=== PATIENT | female | born 1995 | race Caucasian/White ===

== ENCOUNTER → 2021-04-05 06:43 | Outpatient (CLI) | payer SELFPAY ==
[2021-04-05 17:52] LABS: SARS-CoV-2 RNA PCR Negative
== END ==
PROVIDERS: PCP Family Medicine; Visit Provider Nurse Practitioner Family
DX: R68.89 Other general symptoms and signs (principal); Z20.822 Contact with and (suspected) exposure to COVID-19
CPT/HCPCS: C9803; U0003; U0005

== ENCOUNTER 2022-03-07 12:27 | Outpatient (CLI) | payer OTHER, SELFPAY ==
--- NOTE | ~2022-03-07 | CT_ITS ---
EXAMINATION: CT brain wo con DATE: 03/07/2022 12:49 INDICATION: Right headache. Dizziness. Tinnitus. Blurred vision. Loss of balance. TECHNIQUE: Computed tomography (CT) of the head was performed without intravenous contrast. Sagittal and coronal reconstructions were performed. The mA was adjusted according to patient size. Iterative reconstruction technique was employed. The dose-length product was 605.33 mGy-cm. COMPARISON: None FINDINGS: No acute intracranial hemorrhage, acute infarction or abnormal extra axial fluid collection. Ventricl es are normal and symmetric. No mass/mass effect. Multiple small calcified subcutaneous scalp nodules likely representing trichilemmal cysts. The orbits, paranasal sinuses and mastoid air cells are norm al. IMPRESSION: 1. Normal brain. Reviewed, dictated and finalized at location B. IMPRESSION: 1. Normal brain.
== END 2022-03-07 12:28 | disposition home or self-care (01) ==
PROVIDERS: PCP Nurse Practitioner; Visit Provider Nurse Practitioner
DX: R42 Dizziness and giddiness (principal)
CPT/HCPCS: 70450

== ENCOUNTER 2022-03-24 12:47 | Outpatient (CLI) | payer OTHER, SELFPAY ==
[2022-03-24 13:22] LABS: Alanine Aminotransferase 13 U/L (6-35); Alkaline Phosphatase 70 U/L (38-126); Amylase 55 U/L (30-110); Aspartate Amino Transferase 14 U/L (14-36); Bilirubin,Total 0.4 mg/dL (0.2-1.3); Lipase 37 U/L (23-300)
== END 2022-03-24 12:48 | disposition home or self-care (01) ==
LOC: ANHSURGERY 12:52
PROVIDERS: PCP Nurse Practitioner; Visit Provider Surgery
DX: Z01.818 Encounter for other preprocedural examination (principal); K80.10 Calculus of gallbladder with chronic cholecystitis without obstruction
CPT/HCPCS: 36415; 80076; 82150; 83690; 86850; 86900; 86901

== ENCOUNTER 2022-03-27 00:21 | Day surgery (SDC) | payer OTHER, SELFPAY ==
[2022-03-23 14:36] VITALS: BMI 35.9
--- NOTE | 2022-03-23 14:51 | PC.NURSE ---
Report to the Outpatient Waiting Room, entrance under the green pavilion located off [facility], at time 7:30 on date 03/27/22. OR Time: 9:30. - You and your visitor will be asked a series of questions to screen for COVID 19 for your protection. - Only one visitor is allowed at this time. - The patient visitor is requested to leave or wait in car when not with patient. - A mask is required within the hospital. Patients may have clear liquids (water, carbonated beverages, clear teas, apple juice) until 3 hours prior to surgery (6:30) with a maximum of 20 ounces. - No food from midnight until time of surgery Take the following medications with a SIP of water the morning of surgery: CITALOPRAM, INHALER AND PAIN PILL IF NEEDED Medications to discontinue per physician: N/A Date to take last dose: N/A Please no make-up, nail czech, hairspray, perfume, deodorant, or body powder the day of surgery. No jewelry (including any body piercings) or valuables the day of surgery, leave them at home. Please take a shower or bath the night before, or the morning of, surgery with an antibacterial soap. Wear comfortable, loose fitting clothing. HIBICLENS SHOWER - Jewelry must be removed prior to entering the operating room. Rings and piercings that are not removed may be cut off. - The hospital will not accept responsibility for valuables. - Please leave all valuables, including medications, at home the day of surgery. If you are going home after surgery, a licensed ambulance driver paramedic must drive you home. - NO public transportation without another adult. - We recommend that an adult stay with you for 24 hours following discharge. - We also recommend that you do not drive, make important decision, drink alcoholic beverages, or take any drugs that were not prescribed by your health care provider for at least 24 hours after your discharge time. Follow any additional instructions given to you from your surgeon. If you or anyone in your household have experienced Covid symptoms in the past week, please notify your surgeon or the nurse liaison at the phone number below for possible testing. Telephone instructions given to PT - RYAN MINA and asked if any additional questions and then verbalized understanding. Patient advised to call surgeon office or pre surgery nurse liaison [phone] if any additional questions.
[2022-03-27] VITALS (10 sets, daily range): BP systolic 120–146; BP diastolic 69–98; PULSE 54–89; RESP 16–24; TEMP 36.5; O2SAT 91–99
[2022-03-27] MEDS: ACETAMINOPHEN 500 MG TABLET 1000 MG PO (08:10)
[2022-03-27] MEDS: LACTATED RINGERS 1,000 ML 30 ML IV CONT ×2 (08:25→10:07)
[2022-03-27] MEDS: KETOROLAC 15 MG/ML VIAL (*BKC) IV PUSH (08:25)
--- NOTE | 2022-03-27 08:31 | WPDANESEPPF ---
Anes - Initial Pre Proc Eval Procedure: Operation Date: 03/27/22 09:30 Proposed Procedures p Laparoscopic Cholecystectomy - Mirela Turcios MD Date/Time: 03/27/22 08:31 Surgeon: Mirela Turcios MD Pre Op Diagnosis: cholecystitis with stones Patient Data Age: 26 Gender: F Height: 1.63 m Weight: 91.9 kg Last Vital Signs Temp 36.5 C 03/27/22 07:53 Pulse 89 03/27/22 07:53 Resp 16 03/27/22 07:53 BP 146/98 H 03/27/22 07:53 Pulse Ox 99 03/27/22 07:53 O2 Del Method Room Air 03/27/22 07:53 Allergies Allergy/AdvReac Type Severity Reaction Status Date / Time adhesive Allergy Severe Rash Verified 03/27/22 08:05 cinnamon Allergy Severe Becomes Verified 03/27/22 08:05 incoherent codeine Allergy Intermediate Abdominal Verified 03/27/22 08:05 pain human papillomavirus Allergy Intermediate Other Verified 03/27/22 08:05 vaccine, quadr COVID-19 (SARS-CoV-2) AdvReac Severe Pneumonia Verified 03/27/22 08:05 vaccine, kassy tramadol AdvReac Severe GI UPSET Verified 03/27/22 08:05 Home Medications Medication Instructions Recorded Confirmed Type citalopram 20 mg tablet 20 mg PO DAILY #90 tabs 10/21/21 03/27/22 Rx epinephrine 0.3 mg/0.3 mL 0.3 mg (0.3 mL) IM ONCE #2 ea 12/15/21 03/27/22 Rx injection, auto-injector albuterol sulfate 90 mcg/actuation 1 inh inhalation Q4H PRN shortness 12/23/21 03/27/22 Rx aerosol inhaler of breath or wheezing #6.7 grams clonazepam 0.5 mg tablet 0.5 mg PO BID PRN anxiety #60 tabs 01/16/22 03/27/22 Rx sumatriptan succinate 50 mg tablet See Rx Instructions PO .COMPLEX #7 01/30/22 03/27/22 Rx tabs nicotine 14 mg/24 hr daily 1 patch transdermal DAILY #28 ea 03/10/22 03/27/22 Rx transdermal patch ondansetron 4 mg disintegrating 4 mg PO Q8H PRN Nausea 03/10/22 03/27/22 History tablet hydrocodone 5 mg-acetaminophen 325 1 tablet PO Q4-6H PRN pain #60 tabs 03/15/22 03/27/22 Rx mg tablet dicyclomine 10 mg capsule 10 mg PO BID 03/23/22 03/27/22 History Patient hx anesthesia problems: none Family hx anesthesia problems: none Results Review: All pre-operative results and documents have been reviewed as part of the pre-operative evaluation. [facility] Past Medical History Medical History (Updated 03/15/22 @ 09:19 by Shelia Hayward CMA) Anxiety Chronic daily headache History of COVID-19 Insomnia Postural hypotension Surgical History Surgical History H/O adenoidectomy History of ankle surgery (~2004) Left History of tonsillectomy Family History Family History Mother Family history of thyroid disease Sibling Family history of thyroid disease Grandparent Hypertension Acute myocardial infarction Other Bladder cancer Social History Social History Smoking packs per day: 0.5 Smoking cigarettes per day: 10.0 Years smoked: 6 Smoking pack-years: 3.00 Smoking status: Current some day smoker Tobacco type: cigarettes Additional smoking assessment comments: USING NICOTINE PATCH Alcohol intake: current Alcohol use details: VERY RARE Substance use: never Substance use type: does not use Living arrangements: with family Spiritual care concerns: No Anes - Eval Final PreProcedure Day of Procedure 03/27/22 08:31 Patient weight: obese Heart: regular rate and rhythm Lungs: clear to auscultation Airway: Mallampati scale class II Neurological: alert and oriented Last oral intake: >/= 8 hours ASA classification: II Emergent: no Anesthetic plan: proceed Anesthesia type and monitoring: general ETT and standard monitoring Results Review: All pre-operative results and documents have been reviewed as part of the pre-operative evaluation. Informed Consent: The patient's anesthetic plan and its attendant risks and benefits were discussed wit
--- NOTE | 2022-03-27 09:01 | WPDHPUPDATE1 ---
History and Physical Update Update Date/Time: 03/27/22 09:01 History and Physical has been reviewed, including an updated exam of the patient. There are NO changes in the patient's condition. Risks, benefits, and alternatives have been discussed and questions answered. Patient agrees to proceed with procedure.
[2022-03-27] MEDS: ceFAZolin 2 GM/D5W 50 ML 2 GM/50 ML BAG IVPB (09:10)
--- NOTE | 2022-03-27 10:09 | W.PM.PROC2 ---
Procedure Note - Detailed Date of Procedure 03/27/22 Pre-op Diagnosis cholecystitis with stones Post-op Diagnosis Same Procedure Performed Laparoscopic cholecystectomy Surgeon Mirela Turcios MD Anesthesia General Indications 26-year-old female presented to the office complaining of postprandial right upper quadrant abdominal pain associated with nausea and vomiting. Workup including imaging significant for cholecystitis, cholelithiasis. Findings Cholecystitis with cholelithiasis Description of Procedure The patient was taken to the operating room placed in the supine position. After adequate induction of general anesthesia, the patient was prepped and draped in normal sterile fashion. A time-out was then performed to verify the patient's identity as well as the procedure being performed. I then made a 5 mm incision in the infraumbilical region. Through this, a Veress needle was placed into the peritoneal cavity and CO2 gas was then insufflated. After adequate pneumoperitoneum was achieved, the Veress needle was removed and a 5 mm optiview trocar was placed through this incision under direct visualization. I then placed the laparoscope through this trocar site and under direct visualization placed a further 12 mm subxiphoid port as well as 2 additional 5 mm ports in the right upper abdomen. The gallbladder was then identified and was noted to be moderately inflamed, distended, and full of gallstones. It was also covered with omentum and intraperitoneal fat. I took down these adhesions using the bovie cautery. Once this was done, I was able to place a grasper at the dome of the gallbladder and this was retracted anterior and cephalad up over the liver. A 2nd retractor was then placed at the infundibulum and retracted laterally, this allowed visualization of the triangle of Calot. I then was able to visualize the cystic duct in its entirety from its proximal insertion into the gallbladder, to its distal junction with the common hepatic/common bile duct junction. At this point, I carefully skeletonized the proximal cystic duct with the [place] dissector. I then clipped and transected the proximal cystic duct. Next I visualized the cystic artery. Again the artery was skeletonized, clipped, and transected. I then used the Bovie cautery to take down the peritoneal attachments of the gallbladder off the liver bed. This was somewhat difficult given the amount of inflammation in the posterior space. Once the gallbladder specimen was completely detached, an endo-pouch was placed through the 12 mm port site. I then placed the gallbladder specimen into the Endo pouch and removed the endo-pouch from the 12 mm port site. The specimen will now be sent to pathology for further review. I then copiously irrigated the right upper quadrant. Some mild oozing was noted in the liver bed and this was controlled with the bovie cautery. I then placed some hemostatic powder in the liver bed. Hemostasis was noted in the liver bed, the clips were noted to be in good position on both the cystic duct stump and the cystic artery stump. No other pathology was noted in the right upper quadrant. I then moved the laparoscope to the subxiphoid port. No iatrogenic injury or other pathology was noted in the lower abdomen. I then closed the 12 mm trocar site under direct visualization using the Gunnar cone and 0 Vicryl suture. At this point, the abdomen was desufflated and all ports removed. All port sites were then closed with 4.O Monocryl subcuticular sutures. Dermabond was placed on each incision. The patient tolerated the procedure well, was extubated in the operating room postoperative and will be transferred to the recovery room in stable condition Estimated Blood Loss 20 Drains No Packing No Pathology Yes Complications No immediate complications Condition Stable Disposition PACU [facility] Billing Surgery - Charge Forward: Surgery Billing
[2022-03-27] MEDS: fentaNYL CITRATE INJ (*CRX) 100 MCG/2 ML VIAL 25 MCG IV PUSH ×4 (10:38→10:57)
--- NOTE | 2022-03-27 11:42 | SUR.PHASEII ---
1142- Call to Dr. Miller patient requesting pain pill prior to discharge home. Per patient she has allergies to pain medicine but has previously taken PO Beaumont without issues. Per Dr. Miller place orders for PO Beaumont 5/325MG once and administer.
[2022-03-27] MEDS: HYDROcodone/acetaminophen (*CRX) 5-325 MG TABLET 1 TAB PO (11:49)
== END 2022-03-27 12:15 | disposition home or self-care (01) ==
PROVIDERS: PCP Nurse Practitioner; Visit Provider Surgery
PROC: 0FT44ZZ Resection of Gallbladder, Percutaneous Endoscopic Approach (ICD-10-PCS; CPT 47562; principal; 2022-03-27 09:30)
DX: K80.10 Calculus of gallbladder with chronic cholecystitis without obstruction (principal); Z86.16 Personal history of COVID-19
CPT/HCPCS: 47562; 36415; 80076; 82150; 83690; 86850; 86900; 86901; 88304; A9270; J0690; J1100; J1885; J2250; J2405; J2704; J2710; J3010; J7030; J7120

== ENCOUNTER 2022-08-15 14:48 | Outpatient (CLI) | payer OTHER, SELFPAY ==
--- NOTE | ~2022-08-15 | XR_ITS ---
XR chest 2V DATE: 08/15/2022 15:17 INDICATION: Cough, shortness of breath for one week TECHNIQUE: PA and lateral views COMPARISON: 05/15/2018 PA chest FINDINGS: Heart size. No hilar or mediastinal enlargement. No pulmonary infiltrate or consolidation, pleural effusion or pulmonary vascular congestion or pneumothorax. Status post cholecystectomy. Included skeletal structures are unremarkable. IMPRESSION: No active cardiopulmonary disease Reviewed, dictated and finalized at location B. MIXER
[2022-08-15 15:48] LABS: Influenza A QL RT-PCR Negative (Negative); Influenza B QL RT-PCR Negative (Negative); RSV RNA, RT-PCR Negative (Negative); SARS-CoV-2 RNA PCR Negative
== END 2022-08-15 14:49 | disposition home or self-care (01) ==
LOC: ANHLAB 14:51
PROVIDERS: PCP Family Medicine; Visit Provider Nurse Practitioner
DX: R68.89 Other general symptoms and signs (principal); R05.9 Cough, unspecified; Z20.822 Contact with and (suspected) exposure to COVID-19
CPT/HCPCS: 71046; 87637

== ENCOUNTER 2022-10-06 16:00 | Outpatient (CLI) | payer OTHER, SELFPAY ==
[2022-10-06 16:50] LABS: Influenza A QL RT-PCR Negative (Negative); Influenza B QL RT-PCR Negative (Negative); RSV RNA, RT-PCR Negative (Negative); SARS-CoV-2 RNA PCR Negative
== END 2022-10-06 16:01 | disposition home or self-care (01) ==
LOC: ANHLAB 16:01
PROVIDERS: PCP Family Medicine; Visit Provider Nurse Practitioner Family
DX: R68.89 Other general symptoms and signs (principal); Z20.822 Contact with and (suspected) exposure to COVID-19
CPT/HCPCS: 87637

== ENCOUNTER 2022-12-04 17:50 | Outpatient (CLI) | payer OTHER, SELFPAY ==
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
== END 2022-12-04 17:51 | disposition home or self-care (01) ==
PROVIDERS: PCP Family Medicine; Visit Provider Nurse Practitioner Family
DX: M54.50 Low back pain, unspecified (principal)
CPT/HCPCS: 72100

== ENCOUNTER 2023-01-30 10:15 | Emergency (ER) | payer OTHER, SELFPAY ==
--- NOTE | ~2023-01-30 | CT_ITS ---
EXAMINATION: CT lumbar spine wo con DATE: 01/30/2023 12:57 INDICATION: Midline low back pain. TECHNIQUE: Computed tomography (CT) of the lumbar spine was performed without intravenous contrast. A utomated exposure control and iterative reconstruction technique were employed. The dose-length produ ct was 1110.88 mGy-cm. COMPARISON: Lumbar spine radiographs 12/04/2022 FINDINGS: There are changes of cholecystectomy. Bone alignment is normal. Vertebral body heights are normal. Intervertebral disc heights are normal. The following disc levels are specifically discussed: L1-L2: The disc does not extend beyond the endplate margin. There is mild bilateral facet joint osteo arthritis. There is no neural foraminal stenosis. There is no central canal stenosis. L2-L3: The disc does not extend beyond the endplate margin. There is mild bilateral facet joint osteo arthritis. There is no neural foraminal stenosis. There is no central canal stenosis. L3-L4: The disc is bulging. There is mild bilateral facet joint osteoarthritis. There is mild bilater al neural foraminal stenosis. There is mild central canal stenosis. L4-L5: The disc is bulging. There is mild bilateral facet joint osteoarthritis. There is mild bilater al neural foraminal stenosis. There is mild central canal stenosis. L5-S1: The disc is bulging. There is no facet joint osteoarthritis. There is mild bilateral neural fo raminal stenosis. There is mild central canal stenosis. IMPRESSION: 1. Mild lumbar spondylosis. Reviewed, dictated and finalized at location A. IMPRESSION: 1. Mild lumbar spondylosis.
[2023-01-30 10:28] VITALS: BP 153/122; PULSE 122; RESP 18; TEMP 36.6; O2SAT 97
[2023-01-30] MEDS: HYDROcodone/acetaminophen (*CRX) 7.5-325 MG TABLET 1 TAB PO (12:18)
--- NOTE | 2023-01-30 12:23 | ED.BACK ---
HPI - Back Pain/Injury General Chief Complaint: Back Pain/Injury Stated Complaint: back pain x2 months Time Seen by Provider: 01/30/23 11:18 Source: patient Mode of arrival: ambulatory Limitations: no limitations History of Present Illness HPI Narrative: This is a 27-year-old female presents to the ED with chief complaint of several weeks of low back pain. States it is midline. No injuries. She works in a doctor's office. She is concerned because she is had trouble sleeping the last couple of nights and the pain is increased. She endorses some radiation of the pain into the left hip and around the left buttocks. Denies urinary retention, bowel incontinence, saddle anesthesia, fevers, chills. Denies numbness or weakness. Related Data Allergies Allergy/AdvReac Type Severity Reaction Status Date / Time adhesive Allergy Severe Rash Verified 01/30/23 11:01 cinnamon Allergy Severe Becomes Verified 01/30/23 11:01 incoherent codeine Allergy Intermediate Abdominal Verified 01/30/23 11:01 pain human papillomavirus Allergy Intermediate Other Verified 01/30/23 11:01 vaccine, quadr COVID-19 (SARS-CoV-2) AdvReac Severe Pneumonia Verified 01/30/23 11:01 vaccine, kassy tramadol AdvReac Severe GI UPSET Verified 01/30/23 11:01 Review of Systems Review of Systems: CONSTITUTIONAL: Denies fever, chills, or sweats. EYES: Denies visual changes, redness, or discharge. ENT: Denies rhinorrhea, congestion, sore throat, or otalgia. CARDIOVASCULAR: Denies chest pain, palpitations, or edema. RESPIRATORY: Denies cough or dyspnea. GASTROINTESTINAL: Denies abdominal pain, nausea, vomiting, or diarrhea. GENITOURINARY: Denies dysuria or hematuria. SKIN: Denies rash or itching. MUSCULOSKELETAL: See HPI NEUROLOGIC: Denies headache, numbness, dizziness, or weakness. PSYCHIATRIC: Denies anxiety or depression. [facility] Past Medical History Medical History Anxiety Cholecystitis Chronic daily headache History of COVID-19 Insomnia Postural hypotension Surgical History Surgical History H/O adenoidectomy History of ankle surgery (~2004) Left History of laparoscopic cholecystectomy History of tonsillectomy Family History Family History Mother Family history of thyroid disease Sibling Family history of thyroid disease Grandparent Hypertension Acute myocardial infarction Other Bladder cancer Social History Social History (Updated 10/10/22 @ 10:31 by Meryl Emmanuel MA) Smoking packs per day: 0.5 Smoking cigarettes per day: 10.0 Years smoked: 6 Smoking pack-years: 3.00 Smoking status: Current some day smoker Tobacco type: cigarettes Additional smoking assessment comments: USING NICOTINE PATCH Alcohol intake: current Alcohol use details: VERY RARE Substance use: never Substance use type: does not use Lack of Transportation: No Lack of Food: Never True Current Housing: I Have Housing Concerned About Future Housing: No Difficulty Paying Gas/Electric Bills: No Difficulty Paying for Meds: No Currently Unemployed: No Education: Associate Degree Difficulty w/ Childcare or Family Care: No Living arrangements: with family Occupation/Education: occupation Gender identity (if verbalized by the patient): Female Sexual Orientation (if Verbalized by the Patient): Straight or Heterosexual Spiritual care concerns: No Agree to blood products: Yes Exam Narrative: GENERAL: Well-appearing, well-nourished, and in no acute distress. HEAD: Normocephalic, atraumatic. EYES: PERRLA and EOMI. ENT: Nares clear, no rhinorrhea or epistaxis. Mucous membranes moist. Oropharynx without tonsillar hypertrophy exudate or other lesions. NECK: Supple. No adenopathy or masses. CHEST: No respiratory distress. Clear to auscultation. No
[2023-01-30 13:50] VITALS: BP 127/93; PULSE 61; RESP 16; O2SAT 96
== END 2023-01-30 14:09 | disposition home or self-care (01) ==
PROVIDERS: Emergency Provider Physician Assistant; PCP Nurse Practitioner Family
DX: M54.50 Low back pain, unspecified (principal); Z86.16 Personal history of COVID-19; F17.210 Nicotine dependence, cigarettes, uncomplicated
CPT/HCPCS: 72131; 81025; 99284; A9270

== ENCOUNTER 2023-11-29 08:13 | Emergency (ER) | payer SELFPAY ==
[2023-11-29 08:21] VITALS: BP 152/97; PULSE 75; RESP 16; TEMP 36.4; O2SAT 100
--- NOTE | 2023-11-29 08:47 | PC.NURSE ---
PT AND SPOUSE WERE WALKING OUT OF THE ER ENTRYWAY. WHEN ASKED IF THEY WERE LEAVING THEY NODDED THEIR HEADS AND CONTINUED TO WALK OUT WITH A STEADY GAIT
== END 2023-11-29 10:04 | disposition left against medical advice (07) ==
PROVIDERS: PCP Nurse Practitioner Family
DX: N93.9 Abnormal uterine and vaginal bleeding, unspecified (principal)
CPT/HCPCS: 99199

== ENCOUNTER 2023-12-14 16:52 | Outpatient (CLI) | payer OTHER, SELFPAY ==
--- NOTE | ~2023-12-14 | CT_ITS ---
EXAMINATION: CT abdomen pelvis w con DATE: 12/14/2023 17:25 INDICATION: ABD PAIN TECHNIQUE: Computed tomography (CT) of the abdomen and pelvis was performed with 100 mL Omnipaque-350 intravenous contrast. Automated exposure control and iterative reconstruction technique were employe d. The dose-length product was 1122.96 mGy-cm. COMPARISON: None. FINDINGS: Lower thorax: Unremarkable Liver: Normal. Biliary/Gallbladder: Gallbladder is absent. No bile duct dilation. Pancreas: No mass or duct dilation. Spleen: Normal. Adrenals:No mass. Kidneys: No suspicious mass, obstructing stone, or hydronephrosis. GI tract: No small or large bowel dilation. Colonic submucosal fat as can be seen with chronic IBD, o besity, chemotherapy treatment, and celiac disease. Normal appendix. Mesentery/Peritoneum: No ascites, mass, or free air. Retroperitoneum: No mass. Pelvis: Normal urinary bladder and uterus. Right ovarian enlarged to maximum dimension of 4.7 cm, no twisting of the vascular pedicle to suggest torsion, suggestion of peripheral follicles consistent wi th the history of PCOS. The left ovary is enlarged by a 4.6 cm simple cyst, for which no additional i maging is recommended. Soft Tissues: Soft tissues and body wall unremarkable. Bones: No acute osseous finding. IMPRESSION: No acute abdominopelvic process detected. Reviewed, dictated and finalized at location K.
== END 2023-12-14 16:53 | disposition home or self-care (01) ==
LOC: ANHIMG 16:53
PROVIDERS: PCP Nurse Practitioner Family
DX: R10.9 Unspecified abdominal pain (principal)
CPT/HCPCS: 74177; Q9967

== ENCOUNTER 2024-01-17 15:36 | Outpatient (CLI) | payer OTHER, SELFPAY ==
[2024-01-17 15:55] LABS: Basophils Percent Auto 0.5 % (0.2-1.2); Eosinophils Absolute Auto 0.1 K/mm3 (0-0.3); Eosinophils Percent Auto 1.5 % (0-4.4); Hematocrit 43.2 % (37.0-47.0); Hemoglobin 14.3 g/dL (12.0-15.0); Immature Granulocyte Absolute 0.02 K/mm3 (0.00-0.031); Immature Granulocyte Percent A 0.2 % (0-0.5); Mean Corpuscular HGB Conc 33.1 g/dl (32-36); Mean Corpuscular Hemoglobin 30.1 pg (26-34); Mean Corpuscular Volume 90.9 fl (80-100); Mean Platelet Volume 9.8 fl (7.4-10.4); Monocytes Absolute Auto 0.4 K/mm3 (0.1-0.6); Monocytes Percent Auto 4.4 % (2.6-8.5); Neutrophils Absolute Auto 4.9 K/mm3 (1.3-6.7); Neutrophils Percent Auto 56.4 % (45.5-73.1); Platelet Count Result 216 k/mm3 (150-375); Red Blood Count 4.75 M/mm3 (4.2-5.4); Red Cell Distribution Width 12.5 % (11.5-14.5); White Blood Count 8.7 K/mm3 (4.5-10.0)
[2024-01-17 17:25] LABS: Iron 51 ug/dL (37-170)
[2024-01-17 17:28] LABS: Alanine Aminotransferase 25 U/L (6-35); Albumin Level 4.4 g/dL (3.5-5.1); Alkaline Phosphatase 75 U/L (38-126); Anion Gap 8 mmol/L (4-12); Aspartate Amino Transferase 18 U/L (14-36); Bilirubin,Total 0.5 mg/dL (0.2-1.3); Blood Urea Nitrogen 8 mg/dL (7-17); Calcium 9.1 mg/dL (8.4-10.2); Carbon Dioxide 20 mmol/L (22-30); Chloride 110 mmol/L (98-107); Estimated Glomerular Filt Rate > 60; Glucose 89 mg/dL (65-110); Lactate Dehydrogenase 186 U/L (120-246); Potassium 4.2 mmol/L (3.4-5.0); Sodium 138 mmol/L (137-145)
[2024-01-17 17:51] LABS: Percent Iron Saturation 11 % (20-50)
[2024-01-17 19:12] LABS: Folic Acid 6.5 ng/mL (2.76->20)
[2024-01-21 01:23] LABS: Methylmalonic Acid 108 nmol/L (87-318)
== END 2024-01-17 15:37 | disposition home or self-care (01) ==
LOC: ANHLAB 15:39
PROVIDERS: Nurse Practitioner Family; PCP Nurse Practitioner Family; Visit Provider Internal Medicine Hematology & Oncology
DX: D50.0 Iron deficiency anemia secondary to blood loss (chronic) (principal)
CPT/HCPCS: 36415; 80053; 82607; 82728; 82746; 83540; 83550; 83615; 83921; 84238; 85025